=== PATIENT | male | born 1955 | race Caucasian/White ===

== ENCOUNTER 2024-05-04 12:18 | Emergency (ER) | payer BC, SELFPAY ==
--- NOTE | ~2024-05-04 | XR_ITS ---
EXAMINATION: XR chest 2V DATE: 05/04/2024 12:56 INDICATION: Lung crackles. TECHNIQUE: Frontal and lateral views of the chest were obtained. COMPARISON: None. FINDINGS: There is mild atelectasis at the lung bases. No pleural effusion or pneumothorax. The heart size is normal. There are changes of anterior fusion procedure in cervical spine. IMPRESSION: 1. Mild atelectasis at the lung bases. Reviewed, dictated and finalized at location A. L[facility] [employer]
--- NOTE | 2024-05-04 12:30 | ED_ITS ---
HPI - URI/Sore Throat General Chief Complaint: Upper Respiratory Infection Stated Complaint: cold Time Seen by Provider: 05/04/24 12:30 Source: patient Mode of arrival: ambulatory Limitations: no limitations Related Data Allergies Allergy/AdvReac Type Severity Reaction Status Date / Time No Known Allergies Allergy Verified 05/04/24 12:27 Discharge Plan Discharge Patient Language: Croatian Follow-up/Referrals: PHYSICIAN NOT ON STAFF,NONSTAFF [Primary Care Provider] -
--- NOTE | 2024-05-04 12:30 | ED.URI ---
HPI - URI/Sore Throat General Chief Complaint: Upper Respiratory Infection Stated Complaint: cold Time Seen by Provider: 05/04/24 12:30 Source: patient Mode of arrival: ambulatory Limitations: no limitations History of Present Illness HPI Narrative: 68 yo M presents with c/o cough, chest congestion, fatigue, nasal congestion, headache for 3 to 4 days. Denies fever, N/v/D. No CP or SOB. all systems reviewed and negative except as noted above. Related Data Allergies Allergy/AdvReac Type Severity Reaction Status Date / Time No Known Allergies Allergy Verified 05/04/24 12:27 Review of Systems Review of Systems: CONSTITUTIONAL: Denies fever, chills, or sweats. Reports fatigue. EYES: Denies visual changes, redness, or discharge. ENT: Reports rhinorrhea, congestion. Denies sore throat, or otalgia. CARDIOVASCULAR: Denies chest pain, palpitations, or edema. RESPIRATORY: reports cough. Denies dyspnea. GASTROINTESTINAL: Denies abdominal pain, nausea, vomiting, or diarrhea. GENITOURINARY: Denies dysuria or hematuria. SKIN: Denies rash or itching. MUSCULOSKELETAL: Denies back pain, joint pain, or myalgia. NEUROLOGIC: Denies headache, numbness, or weakness. PSYCHIATRIC: Denies anxiety or depression. All other systems reviewed are negative, except as documented in HPI. PMFSH Comments At time of signature, agree with nursing past medical, surgical, social and family history. There is no relevant family history pertinent to the presenting complaint. Exam Narrative: GENERAL: This is a well-nourished, well-developed patient, ill-appearing but no acute distress HEAD: normocephalic, atraumatic. EYES: PERRL. Sclera clear/white. Vision is grossly intact. EARS: External ears normal, auditory canals clear and without drainage, TMs normal without perforation. Hearing grossly intact. NOSE: External nose normal with mild congestion, clear nasal drainage THROAT: Mucous membranes moist, posterior pharynx clear. NECK: Neck supple, non-tender without lymphadenopathy, masses or thyromegaly. CARDIOVASCULAR: Regular rate and rhythm without murmurs, gallops, or rubs. RESPIRATORY: Clear to auscultation. Breath sounds equal bilaterally. No wheezes, rales, or rhonchi. SKIN: warm, Dry, intact with no suspicious lesions or rash, good texture and turgor. NEURO: awake, alert, and oriented to person, place and time. There were no obvious focal neurologic abnormalities. EXTREMITIES: No joint tenderness, effusion, or edema noted. Course Course Level of Care: Express Care Visit Vital Signs Vital signs: Vital Signs Temperature 36.9 C 05/04/24 12:34 Pulse Rate 68 05/04/24 12:34 Respiratory Rate 18 05/04/24 12:34 Blood Pressure 138/69 05/04/24 12:34 Pulse Oximetry 97 05/04/24 12:34 Oxygen Delivery Room Air 05/04/24 12:34 Temperature 36.9 C 05/04/24 12:34 Pulse Rate 68 05/04/24 12:34 Respiratory Rate 18 05/04/24 12:34 Blood Pressure 138/69 05/04/24 12:34 Pulse Oximetry 97 05/04/24 12:34 Oxygen Delivery Room Air 05/04/24 12:34 reviewed MDM - URI/Sore Throat MDM Narrative Medical decision making narrative: patient positive for influenza A. Educated patient that influenza is a virus. Recommend [id number] medications to treat viral symptoms. Patient insistent that chest congestion is going to cause pneumonia. Patient requesting antibiotic. Please be advised this is a medical document. It is intended for [id number] communication. It is written in medical language and may contain unfamiliar abbreviations or verbiage. Medical documents are intended to carry relevant information, facts as evident, and the clinical opinion of the practitioner at the time of the encounter. This report may have been done utilizing a voice recognition system. Attempts have been made to correct errors. However, there may be uncorrected grammatical, spelling, and recognition errors present. The file time of this note does not necessarily represent the time of service. Differential Diagnosis Differential diagnosis: Likely upper respiratory infection, sinusitis, viral infection, bronchitis and influenza Lab Data Labs: Lab Results 05/04/24 05/04/24 05/04/24 Range/Units 12:41 12:49 12:49 POC Influenza A Ag Positive (Negative) POC Influenza B Ag Negative (Negative) POC SARS CoV-2 Ag Negative Negative (Negative) Discharge Plan Discharge Clinical Impression: Influenza A Patient Disposition: Home, Self-Care Condition: Stable Instructions: Antibiotic Form Additional Instructions: You were positive for influenza today. Influenza is a virus and symptoms may last 10-14 days. Take Tylenol every 6-8 hours as needed for pain and fever. Take [id number] extra-strength Mucinex as directed on packaging. Drink at least 64 oz of water a day. Follow-up with your doctor if symptoms are not improving. Patient Language: Estonian Prescriptions: New benzonatate 200 mg capsule 200 mg PO TID PRN (Reason: cough) Qty: 20 0RF prednisone 20 mg tablet 40 mg PO DAILY 5 Days Qty: 10 0RF doxycycline hyclate 100 mg capsule 100 mg PO BID 7 Days Qty: 14 0RF Follow-up/Referrals: PHYSICIAN NOT ON STAFF,NONSTAFF [Primary Care Provider] - Kiana Workman PA-C [Physician Cook House Supervisor] - (establish care with a primary care physician) Time of Disposition: 13:10
[2024-05-04 12:34] VITALS: BP 138/69; PULSE 68; RESP 18; TEMP 36.9; O2SAT 97
[2024-05-04 12:43] LABS: EDINFLUASCREEN Positive (Negative); EDINFLUBSCREEN Negative (Negative)
[2024-05-04 12:52] LABS: EDCOVIDSCREEN Negative (Negative)
--- OUTSIDE RECORDS SUMMARY | 2024-05-04 13:54 | XMS_ITS | Clinical Summary ---
Author Organization [facility] Address [facility] [place] [address] Care Team Providers Care Cover Cutter Machine Name Role Phone Unavailable Primary Care Provider Unavailabl e Allergies No known active allergies Medications pravastatin 40 MG tablet Take 1 tablet by mouth daily. 03/04/2012 Active tamsulosin 0.4 MG Cap Take 1 capsule by mouth daily. 03/04/2012 Active omeprazole 20 MG capsule Take 1 capsule by mouth daily as needed. 06/30/2019 Active omega-3 acid 1 GM capsule Take 4 mg by mouth daily. 08/28/2019 Active aspirin EC (ASPIRIN 81) 81 MG tablet Take 1 tablet by mouth daily. Active losartan 50 MG tablet Take 50 mg by mouth daily. Active Cholecalciferol (VITAMIN D3) 50 MCG (1999) Tab Take 1 tablet by mouth daily. Active hydroCHLOROthia zide 12.5 MG tablet 06/19/2020 Active Eszopiclone 3 MG Tab Take by mouth nightly at bedtime. 05/14/2020 Active Active Problems Problem Noted Date Diagnosed Date Benign prostatic hyperplasia 03/04/2012 Hypercholesterolemia 03/04/2012 Hypertension 03/04/2012 Resolved Problems Problem Noted Date Diagnosed Date Resolved Date Encounter for preventive health examination 03/04/2012 11/18/2019 Immunizations Name Administration Dates Next Due MePlease ([facility]) COVID-19 AD26 VACCINE 0.5 ML IM SUSP 07/12/2020 Family History Medical History Relation Comments No Known Problems Father Glaucoma Mother Macular Degeneration Mother brain surgery with stent Sister Relation Status Comments Father Mother Sister Alive Social History Tobacco Use Types Packs/Day Years Used Date Smoking Tobacco: Former Cigarettes 1 20 1 973 - 1992 Smokeless Tobacco: Never Alcohol Use Standard Drinks/Week Comments Yes 0 (1 standard drink = 0.6 oz pur e alcohol) Social AUDIT-C Answer Date Recorded Q1: How often do you have a drink containing alc ohol? 2-3 times a week 10/26/2019 Q2: How many drinks containi ng alcohol do you have on a typical day when you are drinking? 1 or 2 10/26/2019 Q3: How often do you have si x or more drinks on one occasion? Never 10/26/2019 PHQ-2 Answer Date Recorded PHQ-2 Score - If the patient scores above 3, please move on to questions 3-9 0 08/02/2020 Sex and Gender Information Value Date Recorded Sex Assigned at Not on file Legal Sex Male 5:16 PM CDT Gender Identity Not on file Sexual Orientation Not on file Last Filed Vital Signs Vital Sign Reading Time Taken Comments Blood Pressure 120/78 08/02/2020 7:40 AM CDT Pulse 68 08/02/2020 7:40 AM CDT Temperature 36.3 C (97.3 F) 08/02/2020 7:40 AM CDT Respiratory Rate 20 08/02/2020 7:40 AM CDT Oxygen Saturation 97% 08/02/2020 7:40 AM CDT Inhaled Oxygen Concentration - - Weight 129.7 kg (286 lb) 08/02/2020 7:40 AM CDT Height 172.7 cm (5' 8 ) 08/02/2020 7:40 AM CDT Body Mass Index 43.49 08/02/2020 7:40 AM CDT Plan of Treatment Health Maintenance Due Date Last Done Comments Colorectal Cancer Screening Colonoscopy (10 Years) 1954 Hepatitis C 1972 DTaP, Tdap and Td Vaccines ( 1 - Tdap) 1973 Zoster Vaccines (1 of 2) 2004 Pneumococcal Vaccine: 65+ Ye ars (1 of 1 - PCV) 08/08/2019 COVID-19 Vaccine (2 - 2023-2 5 season) 2023 07/12/2020 Influenza Adult (#1) 2023 RSV Immunization or 60+ Years (1 - 1-dose 75+ series) 2029 Meningococcal B Vaccine Aged Out No l onger eligible based on patient's age to complete this topic Meningococcal Vaccine Aged Out No harley santos eligible based on patient's age to complete this topic RSV Immunizations Under 20 Months Aged Out No longer eligible based on patient's age to complete this topic Insurance [id number]
== END 2024-05-04 13:12 | disposition home or self-care (01) ==
PROVIDERS: Emergency Provider Nurse Practitioner Family
DX: J10.1 Influenza due to other identified influenza virus with other respiratory manifestations (principal); Z20.822 Contact with and (suspected) exposure to COVID-19; I10 Essential (primary) hypertension; E78.00 Pure hypercholesterolemia, unspecified; G47.30 Sleep apnea, unspecified; K21.9 Gastro-esophageal reflux disease without esophagitis; N40.0 Benign prostatic hyperplasia without lower urinary tract symptoms; Z86.16 Personal history of COVID-19
CPT/HCPCS: 71046; 87426; 87804; 99213; G0463